=== PATIENT | male | born 1995 | race Caucasian/White ===

== ENCOUNTER 2016-12-19 09:44 | Inpatient (IN) | payer BC ==
[~2016-12-19] VITALS: Ht 167.6 cm; Wt 63.0 kg
[2016-12-19] MEDS ORDERED: SODIUM CHLORIDE 0.9% 1000ML 1,000 ML IV STA ×2 (10:06→10:58)
--- NOTE | 2016-12-19 10:29 | DIAGNOSTIC IMAGING REPORT ---
CHEST ONE VIEW PORTABLE HISTORY: Atypical chest pain. Hemoptysis. COMPARISON: None. FINDINGS: The lungs are clear. Cardiac silhouette is normal in size. No pleural effusions. No pneumothorax. IMPRESSION: No acute process. Electronically signed by: Trevin Howard M.D. 12/19/2016 10:28 AM Dictated Date/Time: 12/19/2016 10:26 AM
[2016-12-19 10:37] LABS: HEMATOCRIT 43.7 % (42-52); MEAN CORPUSCULAR HEMOGLOBIN 28.8 pg (25-34); MEAN CORPUSCULAR HGB CONC 33.9 g/dl (32-36); MEAN PLATELET VOLUME 10.1 fL (7.4-10.4); PLATELET COUNT 224 K/uL (130-400); RED BLOOD COUNT 5.14 M/uL (4.7-6.1); WHITE BLOOD COUNT 18.11 K/uL (4.8-10.8)
--- NOTE | 2016-12-19 10:50 | EMERGENCY ROOM VISIT NOTE ---
History Report prepared by Molly: Roxann Dunlap Under the Supervision of: Dr. Shahid Moseley M.D. First contact with patient: 10:01 Chief Complaint: OTHER COMPLAINT Stated Complaint: COUGHING BLOOD History of Present Illness The patient is a 21 year old male who presents to the Emergency Room with complaints of a persistent cough for the past week. He currently rates his discomfort as a 7/10 in severity. The patient states that one week ago he became ill with a cough and congestion. He states that he has had a fever, but states that it has been subsiding. The patient states that this morning he began experiencing hemoptysis. He denies ever having this in the past. The patient notes that he has been coughing often, but denies coughing forcefully. He denies any personal or family history of clotting disorders. The patient reports a family history of colon cancer. He states that he has been experiencing back pain. The patient denies any lightheadedness or dizziness. He states that he is a nonsmoker. The patient states that he was recently diagnosed with mono. He denies taking any daily medications or active medical problems. Source of History: patient Onset: past week Position: other (global) Symptom Intensity: 7/10 Quality: other (cough) Timing: other (persistent) Associated Symptoms: + fevers, + back pain Note: Associated Symptoms: congestion, hemoptysis Review of Systems See HPI for pertinent positives and negatives. A total of ten systems were reviewed and were otherwise negative. Past Medical & Surgical Medical Problems: (1) Hemoptysis (2) No Known Active Medical Problems (3) Sepsis Family History Cancer Diabetes mellitus Heart disease Kidney disease Kidney stones Social History Smoking Status: Never Smoker Smokeless Tobacco Use: No Alcohol Use: occasionally Marital Status: single Housing Status: lives with roommate Occupation Status: [employer] student Current/Historical Medications Scheduled PRN Esomeprazole Magnesium (Nexium), 1 CAP PO DAILY PRN for heartburn Allergies Coded Allergies: No Known Allergies (Unverified , 12/19/16) Physical Exam Vital Signs Date Time Temp Pulse Resp B/P (MAP) Pulse Ox O2 Delivery O2 Flow Rate FiO2 12/19/16 16:42 106 16 115/62 96 Room Air 12/19/16 14:23 134 12/19/16 14:20 143/83 12/19/16 13:31 117/64 12/19/16 13:13 100 18 111/62 98 Nebulizer 12/19/16 13:12 111/62 12/19/16 11:44 113 20 99 12/19/16 11:31 134/71 12/19/16 11:14 107 22 96 12/19/16 11:01 130/69 12/19/16 10:44 107 12 100 12/19/16 10:31 118/70 12/19/16 10:21 106 12/19/16 10:20 96 Room Air 12/19/16 10:18 111/67 12/19/16 09:48 37.6 110 18 123/72 99 Room Air Physical Exam GENERAL: Awake, alert, uncomfortable but in no distress HENT: Normocephalic, atraumatic. Dry mucous membranes. Mild injecton, mild symmetric edema in posterior pharynx. No trismus or tongue elevation. Boggy nasal turbinates. EYES: Normal conjunctiva. Sclera non-icteric. NECK: Supple. No nuchal rigidity. FROM. No JVD. Mild lateral neck swelling. No pain with tracheal manipulation. RESPIRATORY: Clear to auscultation. CARDIAC: Sinus tachycardia. Extremities warm and well perfused. Pulses equal. ABDOMEN: Soft, non-distended. No tenderness to palpation. No rebound or guarding. No masses. RECTAL: Deferred. MUSCULOSKELETAL: Chest examination reveals no tenderness. The back is symmetrical on inspection without obvious abnormality. There is no CVA tenderness to palpation. No joint edema. LOWER EXTREMITIES: Calves are equal size bilaterally and non-tender. No edema. No discoloration. NEURO: Normal sensorium. No sensory or motor deficits noted. SKIN: No rash or jaundice noted. Medical Decision & Procedures ER Provider Diagnostic Interpretation: Radiology results as stated below per my review and radiologist interpretation: CHEST ONE VIEW PORTABLE HISTORY: Atypical chest pain. Hemoptysis. COMPARISON: None. FINDINGS: The lungs are clear. Cardiac silhouette is normal in size. No pleural effusions. No pneumothorax. IMPRESSION: No acute process. Electronically signed by: Trevin Howard M.D. 12/19/2016 10:28 AM Dictated Date/Time: 12/19/2016 10:26 AM (CHEST FOR PE) ANGIO WITH CT DOSE: 357.54 mGycm HISTORY: Chest pain hemoptysis TECHNIQUE: Multiaxial CT images of the chest were performed following the intravenous administration of contrast to evaluate the pulmonary arteries. Maximal intensity projection images were also obtained. A dose lowering technique was utilized adhering to the principles of ALARA. COMPARISON STUDY: None. FINDINGS: There is a normal caliber thoracic aorta with no evidence for dissection. There is no evidence for pulmonary embolus. No pleural effusions. No pneumothorax. The liver and spleen are unremarkable. No mediastinal or hilar lymphadenopathy. The central airways are patent. The lungs are clear. Several shotty axillary nodes bilaterally with the largest of the right measuring 1.2 cm on the left 1.3 cm. IMPRESSION: 1. Study is negative for pulmonary embolus. 2. Lungs are considered clear. 3. Mild bilateral axillary adenopathy possibly reactive The above report was generated using voice recognition software. It may contain grammatical, syntax or spelling errors. Electronically signed by: Chano Dugan M.D. 12/19/2016 12:15 PM Dictated Date/Time: 12/19/2016 12:[address] NECK WITH INTRAVENOUS CONTRAST HISTORY: neck swelling/mediastinitis (half dose contrast since 2nd load) TECHNIQUE: Multiaxial CT images of the neck were performed following the use of intravenous contrast. COMPARISON STUDY: None. FINDINGS: Visualized brain parenchyma and orbits are unremarkable. Mild mucosal thickening and a trace fluid level within the right maxillary sinus. The mastoid air cells are clear. No fractures within the visualized osseous structures. Moderate enlargement and heterogeneous enhancement of the adenoid tonsils. There is also marked enlargement and heterogeneous enhancement of the of the bilateral palatine tonsils, right greater than left. No definite peritonsillar abscesses at this time. Focal hypodense/edematous region within the right palatine tonsil may represent a phlegmon. This is best seen on axial image 161. Small amount of mucoid material in the right side of the enlarged palatine tonsil. The palatine tonsils are abutting the midline resulting in mild to moderate airway compromise. The epiglottis and prevertebral soft tissues are normal in thickness. Mild upper right peritracheal lymphadenopathy. The lung apices are clear. The major vascular structures enhance normally. The parotid and submandibular glands are symmetric. There is bilateral cervical lymphadenopathy, right greater than left. Dominant right cervical lymph node measures 2.6 x 1.7 cm. Skin marker within the right lateral neck corresponds to a posterior cervical chain lymph node which measures 2.1 x 1.5 cm. The thyroid gland enhances normally. IMPRESSION: 1. Enlargement and heterogeneous enhancement within the adenoids and palatine tonsils. The palatine tonsils abut at the midline and result in mild to moderate airway compromise. Findings favor an infectious tonsillitis or mononucleosis. 2. Extensive bilateral cervical lymphadenopathy, right greater than left. 3. Focal hypodense area within the right palatine tonsil which does not clearly represent an abscess at this time. Therefore, this favors a phlegmon. Consider repeat CT scan if the patient's symptoms progress to exclude a developing peritonsillar abscess. Electronically signed by: Trevin Howard M.D. 12/19/2016 2:07 PM Dictated Date/Time: 12/19/2016 1:57 PM Laboratory Results Test 12/19/16 10:15 12/19/16 14:35 Red Blood Cell Morphology Unremarkable D-Dimer 1550 ug/L FEU (0-500) Troponin I < 0.015 ng/ml (0-0.045) Lipase 160 U/L (73-393) Monoscreen POS (NEG) Lactic Acid Level 1.5 mmol/L (0.4-2.0) Laboratory results reviewed by me Medications Administered Medications (Trade) Dose Ordered Sig/Katherine Route Start Time Stop Time Status Last Admin Dose Admin Sodium Chloride 1,000 ml @ 999 mls/hr Q1H1M STAT IV 12/19/16 10:06 12/19/16 11:06 DC 12/19/16 11:40 999 MLS/HR Sodium Chloride 1,000 ml @ 999 mls/hr Q1H1M STAT IV 12/19/16 10:58 12/19/16 11:58 DC 12/19/16 11:40 999 MLS/HR Albuterol/ Ipratropium (Duoneb) 3 ml NOW STAT INH 12/19/16 12:56 12/19/16 12:57 DC 12/19/16 13:12 3 ML Piperacillin Sod/ Tazobactam Sod (Zosyn Iv) 4.5 gm NOW STAT IV 12/19/16 13:56 12/19/16 14:01 DC 12/19/16 14:40 4.5 GM Dexamethasone Sodium Phosphate (Decadron Inj) 10 mg NOW ONCE IV 12/19/16 14:00 12/19/16 14:01 DC 12/19/16 14:41 10 MG Lactated Ringer's 1,000 ml @ 999 mls/hr Q1H1M STAT IV 12/19/16 15:22 12/19/16 16:22 DC 12/19/16 16:42 999 MLS/HR Ketorolac Tromethamine (Toradol Inj) 30 mg Q6H PRN IV 12/19/16 16:45 12/24/16 16:44 12/20/16 10:24 30 MG ECG Indication: other (hemoptysis) Rate (beats per minute): 104 Rhythm: sinus tachycardia Findings: no acute ischemic change, other (normal axis) ED Course 1006: Ordered Sodium Chloride 1000 ml @ 999 mls/hr IV. 1041: The patient was evaluated in room B12B. A complete history and physical exam was performed. 1058: Ordered Sodium Chloride 1000 ml @ 999 mls/hr IV. 1256: Ordered DuoNeb 3 ml INH. 1305: I reevaluated the patient and he is resting. I discussed the treatment plan with him. He will have an additional CT scan. 1356: Ordered Zosyn IV 4.5 gm IV. 1400: Ordered Decadron Inj 10 mg IV. 1405: I reevaluated the patient and he is resting. I did a bedside ultrasound at this time that showed not pericardial effusion and had normal LV/RV function and size. 15:30: I d/w ENT, Dr. Paz, who will evaluate patient. 15:50: I d/w Pulmonology, Dr. Andrea, who will evaluate patient. Medical Decision I reviewed the patient's past medical history, medications, and the nursing notes as described above. The patient's presentation and history were concerning for Pneumonia, bronchitis , PE, pneumonitis, alveolar hemorrhage, [place]. The patient is a 21-year-old gentleman who presents emergency Department with persisting cough and congestion for 1 week diagnosed with mono one week ago presents to the emergency department with hemoptysis 2 prior to arrival. Patient appears uncomfortable but in no acute distress. Afebrile. HR is in the 100s but otherwise vital signs stable. The patient did have one episode of hemoptysis of janiya blood on arrival here which was observed in the sink. EKG unremarkable. Workup notable for a white count of 18,000, LFTs elevated, Monospot positive. CT PE was negative for PE however when discussed with radiology there is question of some mediastinal stranding that could be consistent with mediastinitis. During observation mild increase in neck swelling appreciated and therefore CT scan of the neck was ordered which showed some adenoid enlargement with mild airway compression, question phlegmon versus early abscess. Bedside echo negative for pericardial effusion and otherwise grossly normal LV and RV size and function. Lactate wnl. Bld cx sent. Given Zosyn considering concern for bacterial infection superimposed with mono. I discussed this case with Dr. Paz, ENT, evaluated the patient at the bedside and agrees that [employer] unlikely at this time. Moreover he did perform a bedside scope which revealed a patent airway. Additionally discussed with Dr. Andrea, pulmonology, who agrees the patient will require ICU admission for airway monitoring and possible bronchoscopy if hemoptysis persists. Agrees that since the patient is stable and nontoxic, patient is appropriate for admission here. She will come to the patient at the bedside. Case d/w Dr. Walden, [facility] [place] who will admit the patient for further management. Medication Reconcilliation Current Medication List: was personally reviewed by me Impression Primary Impression: Mononucleosis Additional Impression: Mediastinitis Critical Care I have personally spent greater than 80 minutes of critical care time in the direct management of this patient. This includes bedside care, interpretation of diagnostic studies, and testing, discussion with consultants, patient, and family members, and other required patient management activities. This 80 minutes is in excess of all separately billable procedures. Scribe Attestation The scribe's documentation has been prepared under my direction and personally reviewed by me in its entirety. I confirm that the note above accurately reflects all work, treatment, procedures, and medical decision making performed by me. Departure Information Dispostion Being Evaluated By Hospitalist Prescriptions Esomeprazole Magnesium (NEXIUM) 20 Mg Cap 1 CAP PO DAILY Y for heartburn for 30 Days, CAP 0 Refills Prov: Rosemary Walden MD 12/19/16 Referrals No Doctor, Assigned (PCP) Problem Qualifiers
[2016-12-19 10:59] LABS: BLOOD UREA NITROGEN 10 mg/dl (7-18); BUN/CREATININE RATIO 9.5 (10-20); CREATININE 1.05 mg/dl (0.60-1.40); GLUCOSE 94 mg/dl (70-99); SODIUM 135 mmol/L (136-145)
[2016-12-19 11:00] LABS: ALT/SGPT 473 U/L (12-78); AST/SGOT 188 U/L (15-37); CALCIUM 8.6 mg/dl (8.5-10.1); CARBON DIOXIDE 24 mmol/L (21-32); CHLORIDE 101 mmol/L (98-107); POTASSIUM 4.2 mmol/L (3.5-5.1)
[2016-12-19 11:05] LABS: ALKALINE PHOSPHATASE 468 U/L (45-117)
[2016-12-19] MEDS ORDERED: OPTIRAY 320 IV PRN (11:15)
[2016-12-19 11:32] LABS: COMPLETE YES; LYMPH ABS # 1.12 K/uL (1.2-3.4); LYMPHOCYTE % 6.2 %; NEUTROPHILS % 23.9 %; VARIANT LYMPHOCYTE % 64.6 %
--- NOTE | 2016-12-19 12:16 | DIAGNOSTIC IMAGING REPORT ---
(CHEST FOR PE) ANGIO WITH CT DOSE: 357.54 mGycm HISTORY: Chest pain hemoptysis TECHNIQUE: Multiaxial CT images of the chest were performed following the intravenous administration of contrast to evaluate the pulmonary arteries. Maximal intensity projection images were also obtained. A dose lowering technique was utilized adhering to the principles of ALARA. COMPARISON STUDY: None. FINDINGS: There is a normal caliber thoracic aorta with no evidence for dissection. There is no evidence for pulmonary embolus. No pleural effusions. No pneumothorax. The liver and spleen are unremarkable. No mediastinal or hilar lymphadenopathy. The central airways are patent. The lungs are clear. Several shotty axillary nodes bilaterally with the largest of the right measuring 1.2 cm on the left 1.3 cm. IMPRESSION: 1. Study is negative for pulmonary embolus. 2. Lungs are considered clear. 3. Mild bilateral axillary adenopathy possibly reactive The above report was generated using voice recognition software. It may contain grammatical, syntax or spelling errors. Electronically signed by: Chaon Dugan M.D. 12/19/2016 12:15 PM Dictated Date/Time: 12/19/2016 12:08 PM
[2016-12-19] MEDS ORDERED: ALBUT/IPRATROP 3MG/0.5MG NEB 3 ML VIAL INH STA (12:56)
[2016-12-19] MEDS ORDERED: PIPERACILLIN/TAZOBACTAM 4.5 GM/100ML D5W IV STA (13:56)
[2016-12-19] MEDS ORDERED: DEXAMETHASONE SOD INJ 10 MG/ML VIAL IV ONE (14:00)
--- NOTE | 2016-12-19 14:09 | DIAGNOSTIC IMAGING REPORT ---
CT NECK WITH INTRAVENOUS CONTRAST HISTORY: neck swelling/mediastinitis (half dose contrast since 2nd load) TECHNIQUE: Multiaxial CT images of the neck were performed following the use of intravenous contrast. COMPARISON STUDY: None. FINDINGS: Visualized brain parenchyma and orbits are unremarkable. Mild mucosal thickening and a trace fluid level within the right maxillary sinus. The mastoid air cells are clear. No fractures within the visualized osseous structures. Moderate enlargement and heterogeneous enhancement of the adenoid tonsils. There is also marked enlargement and heterogeneous enhancement of the of the bilateral palatine tonsils, right greater than left. No definite peritonsillar abscesses at this time. Focal hypodense/edematous region within the right palatine tonsil may represent a phlegmon. This is best seen on axial image 161. Small amount of mucoid material in the right side of the enlarged palatine tonsil. The palatine tonsils are abutting the midline resulting in mild to moderate airway compromise. The epiglottis and prevertebral soft tissues are normal in thickness. Mild upper right peritracheal lymphadenopathy. The lung apices are clear. The major vascular structures enhance normally. The parotid and submandibular glands are symmetric. There is bilateral cervical lymphadenopathy, right greater than left. Dominant right cervical lymph node measures 2.6 x 1.7 cm. Skin marker within the right lateral neck corresponds to a posterior cervical chain lymph node which measures 2.1 x 1.5 cm. The thyroid gland enhances normally. IMPRESSION: 1. Enlargement and heterogeneous enhancement within the adenoids and palatine tonsils. The palatine tonsils abut at the midline and result in mild to moderate airway compromise. Findings favor an infectious tonsillitis or mononucleosis. 2. Extensive bilateral cervical lymphadenopathy, right greater than left. 3. Focal hypodense area within the right palatine tonsil which does not clearly represent an abscess at this time. Therefore, this favors a phlegmon. Consider repeat CT scan if the patient's symptoms progress to exclude a developing peritonsillar abscess. Electronically signed by: Trevin Howard M.D. 12/19/2016 2:07 PM Dictated Date/Time: 12/19/2016 1:57 PM
[2016-12-19] MEDS ORDERED: LACTATED RINGER'S 1000ML 1,000 ML IV STA (15:22)
--- NOTE | 2016-12-19 16:34 | ENT CONSULTATION ---
DATE OF CONSULTATION: 12/19/2016 OTOLARYNGOLOGY HEAD AND NECK SURGERY EMERGENCY ROOM CONSULTATION I have been asked by Dr. Moseley to evaluate this patient with infectious mononucleosis, acute tonsillitis, and hemoptysis. HISTORY OF PRESENT ILLNESS: The patient is a 21-year-old male who has been feeling ill for the past 10-14 days. This began with fever as high as 103 degrees Fahrenheit, fatigue, malaise, myalgias, arthralgias, and sore throat. He continued to progress with sinonasal congestion and a cough. He was seen multiple times at [facility] as well as various urgent care centers. He went to an urgent care center today after having hemoptysis. They sent him to the [facility] Emergency Room. Upon careful questioning, the patient may have coughed up as much as 1 cup of blood and blood clots. He currently denies any shortness of breath or chest pain. He states that the right side of his throat hurts more than the left. He does have some right referred otalgia. He denies any hearing loss. He has some expected odynophagia and mild dysphagia. He has also developed cervical lymphadenopathy over the past 7-10 days. ALLERGIES: No known drug allergies. HOME MEDICATIONS: None. PAST MEDICAL HISTORY: None. PAST SURGICAL HISTORY: Status post open reduction and internal fixation of a right wrist fracture. FAMILY HISTORY: Noncontributory. No bleeding disorders or malignant hyperthermia. There is a family history of early onset colon cancer. The patient has actually undergone a colonoscopy at a young age due to this family history with no findings. SOCIAL HISTORY: The patient is a [employer] senior who is originally from [place]. He is a nonsmoker. He drinks alcohol socially. He denies any illicit drug use. REVIEW OF SYSTEMS: The patient has fatigue, fever, myalgias, back pain, right greater than left sore throat, right ear pain, and the above-mentioned hemoptysis. He denies any shortness of breath or chest pain. He denies any lightheadedness or dizziness. He denies any hearing loss or vertigo. He has some sinonasal congestion, but denies any purulent rhinorrhea or postnasal drip. PHYSICAL EXAMINATION: GENERAL: This is an ill-appearing, pale young adult male who does not have any stertor or stridor. HEENT: He has severe halitosis. External auditory canals and tympanic membranes are clear bilaterally. Has a left septal deviation and right greater than left inferior turbinate hypertrophy with mild nasal mucosal congestion which is worse on the left hand side. Oral cavity and oropharyngeal examination reveals no trismus. He does have a mild exudative tonsillitis which is worse on the right compared to the left. There is no trismus. There is no uvular deviation. There is no soft palate edema. There are no clinical findings to suggest a peritonsillar abscess. NECK: Reveals bulky right greater than left anterior and posterior cervical lymphadenopathy which is most prominent in the right posterior cervical chain in the level 5 region. His trachea is midline. His thyroid shows no abnormalities visibly or on palpation. CHEST: He has no erythema overlying his chest wall cavity. There is no tenderness to palpation of his chest wall. NEUROLOGICAL: Cranial nerves II-XII are grossly intact. The patient is awake, alert and oriented x3. PROCEDURE: After administration of topical lidocaine and Afrin to the right nasal cavity, flexible laryngoscopy was performed given the history of hemoptysis as well as the worry about his airway. The nasopharynx shows mild to moderate adenoid prominence with no mucosal lesion or mass. Hypopharynx and larynx shows no edema. There are no mucosal lesions or masses. There is normal bilateral true vocal fold mobility to the midline. There is no evidence of a source of bleeding from the upper aerodigestive tract. LABORATORY DATA: Shows an elevated white blood cell count of 18.11. His lymphocytes are low at 1.12. His monocytes are high at 0.96. His D-dimer is elevated at 1550. He is mildly hyponatremic with a sodium of 135. He has mildly elevated total bilirubin of 1.4 and direct bilirubin at 0.7. He has elevated liver function tests with an AST of 188, ALT of 473, and an alkaline phosphatase of 468. [place] screen is positive. IMAGING DATA: CT scan of the neck images and report were reviewed. The patient does have mild thickening involving the right maxillary sinus, but the ostiomeatal complex is open. He has right greater than left tonsillar enlargement. There is adenoid enlargement as well. The oropharyngeal airway is mildly narrowed on the CT scan. He has a small area of edema and perhaps phlegmon within the right tonsil, but there is no ring enhancing abscess collection. The patient has bulky bilateral cervical lymphadenopathy which is worse on the right compared to the left. The largest lymph node on the right measures 2.6 cm and the largest lymph node on the right measures 2.[address] scan of the chest was also reviewed, which showed no evidence of pulmonary emboli. He has some axillary lymphadenopathy. Lungs are otherwise clear. IMPRESSION AND RECOMMENDATIONS: A 21-year-old male with infectious mononucleosis with an acute tonsillitis which is worse on the right hand side, but no evidence of peritonsillar abscess, at this time clinically or radiographically. His hypopharynx and larynx are normal. The patient does have concerning hemoptysis and I would recommend consideration of a pulmonary consultation for consideration of bronchoscopy. I have been told he will be admitted to the hospitalist service in the intensive care unit and placed on IV antibiotics and steroids. I would recommend Unasyn 3 grams IV q. 6 hours and Decadron 10 mg IV q. 8 hours while he is hospitalized. He can then go home when he is discharged on Augmentin 875 mg b.i.d. for 14 days and a prednisone taper to consist of 40 mg p.o. b.i.d. for 2 days, followed by 30 mg p.o. b.i.d. for 2 days, followed by 20 mg p.o. b.i.d. for 2 days, followed by 10 mg p.o. b.i.d. for 2 days, followed by 10 mg daily for 2 days. Since there is no ENT surgical issue on this patient, I will sign off on this consultation, but please do not hesitate to contact me if you run into any worsening right-sided throat symptomatology or airway emergency. There has been some talk that the patient may have mild mediastinitis. He needs to be monitored very closely. If he becomes more toxic or febrile, there is a chance that he may need to be transferred to a tertiary care center. For now, I think it is safe to admit him to our hospital intensive care unit with close monitoring by the ICU and medical teams. PARMINDER
[2016-12-19] MEDS ORDERED: ONDANSETRON INJ 2 MG/ML 2 ML VIAL IV PRN (16:45)
[2016-12-19] MEDS ORDERED: METHYLPREDNISOLONE IV 60 MG in SYRINGE 0 ML IV SCH (16:45)
[2016-12-19] MEDS ORDERED: POLYETHYLENE (MIRALAX) 17 GM PACK PO PRN (16:45)
[2016-12-19] MEDS ORDERED: ACETAMINOPHEN 325 MG TAB PO PRN (16:45)
[2016-12-19] MEDS ORDERED: ESOM20CA PO (17:50)
--- NOTE | 2016-12-19 18:24 | History and Physical ---
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 He began having fevers to 103, malaise, sore throat, and severe fatigue about 7-10 days ago. [facility] Eventually, he was positive for mono testing, but states he was negative for strep pharyngitis. He reports coughing up about a cupful of bright red blood this morning and was sent to the ER from the clinic. In the ER, his Monospot was again positive, his LFTs were elevated, his white blood cell count was elevated at 18 with a predominance of atypical lymphocytes. He had a CT angiogram of the chest which was negative for PE or pneumonia, but did show some mild axillary adenopathy bilaterally. He had some neck swelling and the ER doctor ordered a CT scan of the neck which showed enlargement of the adenoid and palatine tonsils, mild to moderate airway compromise, and phlegmon in the right tonsil with suspicion for early peritonsillar abscess. Although not in the report, the ER doctor mentioned that radiology thought there might be some stranding in the mediastinum consistent with mediastinitis. He had a low-grade fever in the ER, was tachycardic, and with a leukocytosis. A lactate was normal at 1.5 but was not drawn until after he received IV fluids. ENT saw the patient and performed a nasal laryngoscopy in the emergency room and did not think he had any airway compromise and there was no active bleeding. ER doctor performed a bedside echocardiogram which showed no pericardial effusion and grossly normal function. The patient will be admitted for hemoptysis, infectious mononucleosis with pharyngitis, and sepsis. Past Medical/Surgical History PMH: GERD with hiatal hernia PSH: Right wrist ORIF Family History Cancer Diabetes mellitus Heart disease Kidney disease Kidney stones Early colon cancer Sister required tonsillectomy for frequent pharyngitis Social History Smoking Status: Never Smoker Smokeless Tobacco Use: No Alcohol Use: socially Drug Use: none Marital Status: single Housing status: lives with roommate Occupational Status: [employer] student Allergies Coded Allergies: No Known Allergies (Unverified , 12/19/16) Home Medications Scheduled PRN Esomeprazole Magnesium (Nexium), 1 CAP PO DAILY PRN for heartburn Review of Systems Constitutional: + fever, + chills, + fatigue ENT: + nasal symptoms (some nasal congestion), + sore throat Respiratory: + hemoptysis, No cough, No shortness of breath Cardiovascular: No chest pain Abdomen: + pain (some in the left upper quadrant but not currently), No nausea , No vomiting Musculoskeletal: No problem reported Genitourinary - Male: No problem reported Neurologic: No problem reported Psychiatric: No problem reported Endocrine: + fatigue Hematologic / Lymphatic: + swollen lymph nodes (in the neck) Integumentary: No rash Allergic / Immunologic: No problem reported Physical Exam Vital Signs Date Time Temp Pulse Resp B/P (MAP) Pulse Ox O2 Delivery O2 Flow Rate FiO2 12/19/16 16:42 106 16 115/62 96 Room Air 12/19/16 14:23 134 12/19/16 14:20 143/83 12/19/16 13:31 117/64 12/19/16 13:13 100 18 111/62 98 Nebulizer 12/19/16 13:12 111/62 12/19/16 11:44 113 20 99 12/19/16 11:31 134/71 12/19/16 11:14 107 22 96 12/19/16 11:01 130/69 12/19/16 10:44 107 12 100 12/19/16 10:31 118/70 12/19/16 10:21 106 12/19/16 10:20 96 Room Air 12/19/16 10:18 111/67 12/19/16 09:48 37.6 110 18 123/72 99 Room Air General Appearance: WD/WN, no apparent distress Head: normocephalic, atraumatic Eyes: normal inspection, EOMI, sclerae normal ENT: hearing grossly normal, + pertinent finding (severe halitosis, right tonsil with erythema and mild exudate, airway is widely patent) Neck: supple, + adenopathy present (bilateral right greater than left bulky cervical posterior and anterior lymphadenopathy that is tender to the touch) Respiratory/Chest: lungs clear, normal breath sounds, no respiratory distress, no accessory muscle use Cardiovascular: no edema, no gallop, no murmur, normal peripheral pulses, + tachycardia (with regular rhythm) Abdomen/GI: normal bowel sounds, soft, + tenderness (mild in the left upper quadrant, no definite spleen edge palpable, no guarding or rebound tenderness) Back: normal inspection Extremities/Musculoskelatal: normal inspection, no calf tenderness, normal capillary refill, no pedal edema, normal range of motion Neurologic/Psych: no motor/sensory deficits, alert, normal mood/affect, oriented x 3 Skin: normal color, warm/dry, no rash Lymphatic: + cervical node abnormality (as per above) Diagnostics Laboratory Results Results Past 24 Hours Test 12/19/16 10:15 12/19/16 14:35 Range/Units White Blood Count 18.11 4.8-10.8 K/uL Red Blood Count 5.14 4.7-6.1 M/uL Hemoglobin 14.8 14.0-18.0 g/dL Hematocrit 43.7 42-52 % Mean Corpuscular Volume 85.0 80-100 fL Mean Corpuscular Hemoglobin 28.8 25-34 pg Mean Corpuscular Hemoglobin Concent 33.9 32-36 g/dl Platelet Count 224 130-400 K/uL Mean Platelet Volume 10.1 7.4-10.4 fL RDW Standard Deviation 41.5 36.4-46.3 fL RDW Coefficient of Variation 13.4 11.5-14.5 % Neutrophils % (Manual) 23.9 % Lymphocytes % (Manual) 6.2 % Variant Lymphocytes % (manual) 64.6 % Monocytes % (Manual) 5.3 % Neutrophils # (Manual) 4.33 1.4-6.5 K/uL Total Absolute Neutrophils 4.33 1.4-6.5 K/uL Lymphocytes # (Manual) 1.12 1.2-3.4 K/uL Absolute Variant Lymphocytes 11.70 K/uL Total Absolute Lymphocytes 12.82 1.2-3.4 K/uL Monocytes # (Manual) 0.96 0.11-0.59 K/uL Red Blood Cell Morphology Unremarkable D-Dimer 1550 0-500 ug/L FEU Sodium Level 135 136-145 mmol/L Potassium Level 4.2 3.5-5.1 mmol/L Chloride Level 101 98-107 mmol/L Carbon Dioxide Level 24 21-32 mmol/L Anion Gap 10.0 3-11 mmol/L Blood Urea Nitrogen 10 7-18 mg/dl Creatinine 1.05 0.60-1.40 mg/dl Est Creatinine Clear Calc Drug Dose 99.5 ml/min Estimated GFR () 116.2 Estimated GFR (Non- 100.3 BUN/Creatinine Ratio 9.5 10-20 Random Glucose 94 70-99 mg/dl Calcium Level 8.6 8.5-10.1 mg/dl Total Bilirubin 1.4 0.2-1 mg/dl Direct Bilirubin 0.7 0-0.2 mg/dl Aspartate Amino Transf (AST/SGOT) 188 15-37 U/L Alanine Aminotransferase (ALT/SGPT) 473 12-78 U/L Alkaline Phosphatase 468 45-117 U/L Troponin I < 0.015 0-0.045 ng/ml Total Protein 7.9 6.4-8.2 gm/dl Albumin 3.6 3.4-5.0 gm/dl Lipase 160 73-393 U/L Monoscreen POS NEG Lactic Acid Level 1.5 0.4-2.0 mmol/L Microbiology Results 12/19/16 Blood Culture, Received Pending 12/19/16 Blood Culture, Received Pending 12/19/16 Group A Streptococcus Screen, Received Pending 12/19/16 Group A Streptococcus Screen (CRYSTAL), Received Pending Diagnostic Radiology CT angiogram of the chest images personally reviewed by me and agree with the radiology findings: 1. Study is negative for pulmonary embolus. 2. Lungs are considered clear. 3. Mild bilateral axillary adenopathy possibly reactive CT soft tissue neck reviewed by me and agree with radiology findings: 1. Enlargement and heterogeneous enhancement within the adenoids and palatine tonsils. The palatine tonsils abut at the midline and result in mild to moderate airway compromise. Findings favor an infectious tonsillitis or mononucleosis. 2. Extensive bilateral cervical lymphadenopathy, right greater than left. 3. Focal hypodense area within the right palatine tonsil which does not clearly represent an abscess at this time. Therefore, this favors a phlegmon. Consider repeat CT scan if the patient's symptoms progress to exclude a developing peritonsillar abscess. 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 Infectious mononucleosis, pharyngitis, sepsis, hemoptysis-lab findings of leukocytosis with predominance of atypical lymphocytes and physical exam CONSISTENT with mononucleosis. Bleeding is most likely coming from the upper airway. ENT saw the patient and performed a nasal laryngoscopy in the emergency room and did not think he had any airway compromise and there was no active bleeding. Pulmonology also evaluated the patient in the ER and reviewed the CT scan of the chest. No need for urgent bronchoscopy at this time. -Continue dexamethasone 10 mg IV every 8 hours and then can send out on prednisone taper as per ENT specifications as per their consultation -Continue Zosyn for now and can switch to Augmentin also as per ENT recommendations-to cover for bacterial pharyngitis superimposed on mononucleosis -Check rapid strep and throat culture if rapid strep is negative -Toradol, acetaminophen for pain control -Continue observation for persistent hemoptysis-pulmonology would consider bronchoscopy if persists -full liquid diet until pain improved -Follow CBC and LFTs in the morning Elevated LFTs-likely secondary to mononucleosis -Follow LFTs to ensure trending down Cervical and axillary lymphadenopathy-secondary to infectious mononucleosis -Follow clinically Left upper quadrant pain-stain appears normal on CT of the chest, but is likely related to his mononucleosis -Observe for signs of splenic rupture -Recommend 3-4 weeks with no contact sports or activities GERD-no current issues although will be on steroids which could exacerbate this -Start daily PPI while on steroids Prophylaxis-SCDs, no chemical prophylaxis secondary to hemoptysis Disposition-to home in 1-2 days Full code Level of Care Telemetry Resuscitation Status FULL RESUSCITATION VTE Prophylaxis Given or contraindicated: SCD's Additional Copies To [facility]
[2016-12-19 19:30] VITALS: BP 124/69; PULSE 95; TEMP 37.4; O2SAT 96; Ht 167.6 cm; Wt 63.0 kg
[2016-12-19] MEDS: KETOROLAC TROMETHAMINE 30 MG/ML VIAL IV PRN (20:05)
[2016-12-19] MEDS ORDERED: PIPERACILL/TAZOBAC CONSULT ACTIVE PRN (20:30)
[2016-12-19] MEDS: DEXAMETHASONE INJ 10 MG in SYRINGE 0 ML IV SCH (20:57)
[2016-12-19] MEDS: PIPERACILL/TAZOBAC IV 3.375 GM in DEXTROSE 5% 100ML 100 ML IV SCH (20:57)
[2016-12-19 23:03] VITALS: BP 118/69; PULSE 91; TEMP 36.6; O2SAT 99
[2016-12-20] VITALS (9 sets, daily range): BP systolic 106–126; BP diastolic 61–84; PULSE 70–84; TEMP 36.6–36.9; O2SAT 95–99
[2016-12-20] MEDS: KETOROLAC TROMETHAMINE 30 MG/ML VIAL IV PRN ×3 (03:38→17:54)
[2016-12-20] MEDS: PIPERACILL/TAZOBAC IV 3.375 GM in DEXTROSE 5% 100ML 100 ML IV SCH ×3 (06:06→20:30)
[2016-12-20 06:15] LABS: HEMATOCRIT 39.8 % (42-52); MEAN CELL VOLUME 84.3 fL (80-100); MEAN CORPUSCULAR HEMOGLOBIN 28.6 pg (25-34); MEAN CORPUSCULAR HGB CONC 33.9 g/dl (32-36); MEAN PLATELET VOLUME 10.2 fL (7.4-10.4); PLATELET COUNT 253 K/uL (130-400); RED BLOOD COUNT 4.72 M/uL (4.7-6.1); WHITE BLOOD COUNT 12.16 K/uL (4.8-10.8)
[2016-12-20] MEDS: DEXAMETHASONE INJ 10 MG in SYRINGE 0 ML IV SCH (06:30)
[2016-12-20 06:43] LABS: ALT/SGPT 319 U/L (12-78); AST/SGOT 83 U/L (15-37); BLOOD UREA NITROGEN 10 mg/dl (7-18); BUN/CREATININE RATIO 14.3 (10-20); CALCIUM 8.1 mg/dl (8.5-10.1); CARBON DIOXIDE 26 mmol/L (21-32); CHLORIDE 103 mmol/L (98-107); CREATININE 0.73 mg/dl (0.60-1.40); GLUCOSE 164 mg/dl (70-99); POTASSIUM 4.1 mmol/L (3.5-5.1); SODIUM 136 mmol/L (136-145)
[2016-12-20 06:50] LABS: ALKALINE PHOSPHATASE 357 U/L (45-117)
[2016-12-20 07:45] LABS: COMPLETE YES; LYMPH ABS # 0.64 K/uL (1.2-3.4); LYMPHOCYTE % 5.3 %; NEUTROPHILS % 40.7 %; VARIANT LYM ABS # 6.14 K/uL; VARIANT LYMPHOCYTE % 50.5 %
[2016-12-20] MEDS: PANTOprazole SOD 40 MG TAB PO SCH (09:00)
--- NOTE | 2016-12-20 10:29 | Pulmonary Consultation ---
History General Date of Service: Dec 20, 2016. Stated Complaint: Hemoptysis, Sepsis HPI Patient is a 21 yo male who presented to the ED with concerns of persistent cough with hemoptysis, congestion, sore throat, malaise, and fever. Prior to presentation to the ED, [facility] and [facility]gent care more recently. He has also had severe fatigue for about 1 week. Upon presentation to the ED, the patient was noted to have elevated WBC count of 18.11 with Lymphocyte predominance, elevated LFTs, elevated DDimer, and positive [place] screen again. CTA of the chest was completed on presentation which was viewed by me and showed no PE, overall clear lung cates, and mild bilateral axillary adenopathy. CT of the neck was also completed which showed enlargement of the adenoids and palatine tonsils, extensive bilateral cervical lymphadenopathy, and focal hypodense area in the right palatine tonsil favoring phlegmon. ENT evaluated the patient and did not feel that he has evidence of peritonsillar abscess. The patient was placed on IV Zosyn and Dexamethasone 10 mg Q8h. He is also no Toradol for pain control. Initial throat swab for strep is negative. Throat culture and blood cultures are pending. Patient was evaluated by Dr. Andrea as well in the ED upon initially presentation. Historian: patient, family Onset: last week Severity: severe Complaint Status: improved Review of Systems Constitutional: reports: chills, fever (now resolved), malaise Eyes: denies: eye pain, redness ENT: denies: loss of hearing Cardiovascular: denies: chest pain, chest pressure, chest tightness Respiratory: reports: cough, hemoptysis Gastrointestinal: reports: abdominal pain, denies: constipation, diarrhea Genitourinary - Male: denies: dysuria, hematuria Integumentary: denies: rash Neurologic: denies: headache All Other Symptoms All Other Systems: Reviewed and Negative Past Medical History Past Medical History: Medical Problems: (1) Hemoptysis (2) No Known Active Medical Problems (3) Sepsis Past Surgical Hx: Right wrist ORIF Family History Cancer Diabetes mellitus Heart disease Kidney disease Kidney stones Social History Hx Tobacco Use In Past Year?: No Smoking Status: Never Smoker Marital status: single Housing status: lives with roommate Occupational Status: [employer] student Allergies Coded Allergies: No Known Allergies (Unverified , 12/19/16) Current Medications Reported Home Medications Medications Dose Route/Sig Max Daily Dose Days Date Category Nexium (Esomeprazole Magnesium) 20 Mg Cap 1 Cap PO DAILY PRN 30 12/19/16 Rx Physical Physical Exam Vital Signs: Date Time Temp Pulse Resp B/P (MAP) Pulse Ox O2 Delivery O2 Flow Rate FiO2 12/20/16 08:01 36.7 84 18 126/71 (89) 98 Room Air 12/20/16 04:00 Room Air 12/20/16 03:46 36.7 70 20 126/84 (98) 99 Room Air 12/19/16 23:59 Room Air 12/19/16 23:03 36.6 91 15 118/69 (85) 99 Room Air 12/19/16 20:00 Room Air 12/19/16 19:30 37.4 95 18 124/69 96 Room Air 12/19/16 19:08 37.6 88 18 122/55 96 12/19/16 19:03 88 18 122/55 96 Room Air 12/19/16 16:42 106 16 115/62 96 Room Air 12/19/16 14:23 134 12/19/16 14:20 143/83 12/19/16 13:31 117/64 12/19/16 13:13 100 18 111/62 98 Nebulizer 12/19/16 13:12 111/62 12/19/16 11:44 113 20 99 12/19/16 11:31 134/71 12/19/16 11:14 107 22 96 12/19/16 11:01 130/69 12/19/16 10:44 107 12 100 12/19/16 10:31 118/70 General Appearance: WELL-APPEARING, WD/WN, NO APPARENT DISTRESS Head: NORMOCEPHALIC, ATRAUMATIC Eyes: PERRLA, NO DISCHARGE, SCLERAE NORMAL Neck: NORMAL RANGE OF MOTION, TRACHEA MIDLINE, NO STRIDOR, other (Very mild tenderness to palpation today- improved, Continues mild adenopathy of the cervical chains and also of the submandibular lymph nodes) Respiratory: BREATH SOUNDS NORMAL, CLEAR TO AUSCULTATION, NO RESPIRATORY DISTRESS, NO TENDERNESS Cardiovasular: REGULAR RATE/RHYTHM, NORMAL S1S2, NO MURMUR Abdomen: NON TENDER, NORMAL BOWEL SOUNDS, NO MASSES Back: NORMAL INSPECTION Upper Extremities: NO EDEMA, NORMAL ROM Lower Extremities: NO EDEMA, NORMAL ROM Neuro: ALERT, ORIENTED x 3 Psychiatric: NORMAL AFFECT Diagnostics Labs Results Past 24 Hours Test 12/19/16 14:35 12/20/16 05:51 Range/Units Lactic Acid Level 1.5 0.4-2.0 mmol/L White Blood Count 12.16 4.8-10.8 K/uL Red Blood Count 4.72 4.7-6.1 M/uL Hemoglobin 13.5 14.0-18.0 g/dL Hematocrit 39.8 42-52 % Mean Corpuscular Volume 84.3 80-100 fL Mean Corpuscular Hemoglobin 28.6 25-34 pg Mean Corpuscular Hemoglobin Concent 33.9 32-36 g/dl Platelet Count 253 130-400 K/uL Mean Platelet Volume 10.2 7.4-10.4 fL RDW Standard Deviation 41.0 36.4-46.3 fL RDW Coefficient of Variation 13.3 11.5-14.5 % Nucleated RBC Absolute Count (auto) 0.07 0-0 K/uL Neutrophils % (Manual) 40.7 % Lymphocytes % (Manual) 5.3 % Variant Lymphocytes % (manual) 50.5 % Monocytes % (Manual) 3.5 % Nucleated Red Blood Cells % 0.6 % Neutrophils # (Manual) 4.95 1.4-6.5 K/uL Total Absolute Neutrophils 4.95 1.4-6.5 K/uL Lymphocytes # (Manual) 0.64 1.2-3.4 K/uL Absolute Variant Lymphocytes 6.14 K/uL Total Absolute Lymphocytes 6.79 1.2-3.4 K/uL Monocytes # (Manual) 0.43 0.11-0.59 K/uL Sodium Level 136 136-145 mmol/L Potassium Level 4.1 3.5-5.1 mmol/L Chloride Level 103 98-107 mmol/L Carbon Dioxide Level 26 21-32 mmol/L Anion Gap 7.0 3-11 mmol/L Blood Urea Nitrogen 10 7-18 mg/dl Creatinine 0.73 0.60-1.40 mg/dl Est Creatinine Clear Calc Drug Dose 143.2 ml/min Estimated GFR () > 150.0 Estimated GFR (Non- 131.7 BUN/Creatinine Ratio 14.3 10-20 Random Glucose 164 70-99 mg/dl Calcium Level 8.1 8.5-10.1 mg/dl Total Bilirubin 0.9 0.2-1 mg/dl Direct Bilirubin 0.4 0-0.2 mg/dl Aspartate Amino Transf (AST/SGOT) 83 15-37 U/L Alanine Aminotransferase (ALT/SGPT) 319 12-78 U/L Alkaline Phosphatase 357 45-117 U/L Total Protein 7.0 6.4-8.2 gm/dl Albumin 3.0 3.4-5.0 gm/dl Microbiology Results 12/19/16 Blood Culture, Received Pending 12/19/16 Blood Culture, Received Pending 12/19/16 Group A Streptococcus Screen - Final, Resulted SPECIMEN NEGATIVE FOR GROUP A BETA ST... 12/19/16 Group A Streptococcus Screen (CRYSTAL), Resulted Pending Diagnostic Radiology (CHEST FOR PE) ANGIO WITH CT DOSE: 357.54 mGycm HISTORY: Chest pain hemoptysis TECHNIQUE: Multiaxial CT images of the chest were performed following the intravenous administration of contrast to evaluate the pulmonary arteries. Maximal intensity projection images were also obtained. A dose lowering technique was utilized adhering to the principles of ALARA. COMPARISON STUDY: None. FINDINGS: There is a normal caliber thoracic aorta with no evidence for dissection. There is no evidence for pulmonary embolus. No pleural effusions. No pneumothorax. The liver and spleen are unremarkable. No mediastinal or hilar lymphadenopathy. The central airways are patent. The lungs are clear. Several shotty axillary nodes bilaterally with the largest of the right measuring 1.2 cm on the left 1.3 cm. IMPRESSION: 1. Study is negative for pulmonary embolus. 2. Lungs are considered clear. 3. Mild bilateral axillary adenopathy possibly reactive CT NECK WITH INTRAVENOUS CONTRAST HISTORY: neck swelling/mediastinitis (half dose contrast since 2nd load) TECHNIQUE: Multiaxial CT images of the neck were performed following the use of intravenous contrast. COMPARISON STUDY: None. FINDINGS: Visualized brain parenchyma and orbits are unremarkable. Mild mucosal thickening and a trace fluid level within the right maxillary sinus. The mastoid air cells are clear. No fractures within the visualized osseous structures. Moderate enlargement and heterogeneous enhancement of the adenoid tonsils. There is also marked enlargement and heterogeneous enhancement of the of the bilateral palatine tonsils, right greater than left. No definite peritonsillar abscesses at this time. Focal hypodense/edematous region within the right palatine tonsil may represent a phlegmon. This is best seen on axial image 161. Small amount of mucoid material in the right side of the enlarged palatine tonsil. The palatine tonsils are abutting the midline resulting in mild to moderate airway compromise. The epiglottis and prevertebral soft tissues are normal in thickness. Mild upper right peritracheal lymphadenopathy. The lung apices are clear. The major vascular structures enhance normally. The parotid and submandibular glands are symmetric. There is bilateral cervical lymphadenopathy, right greater than left. Dominant right cervical lymph node measures 2.6 x 1.7 cm. Skin marker within the right lateral neck corresponds to a posterior cervical chain lymph node which measures 2.1 x 1.5 cm. The thyroid gland enhances normally. IMPRESSION: 1. Enlargement and heterogeneous enhancement within the adenoids and palatine tonsils. The palatine tonsils abut at the midline and result in mild to moderate airway compromise. Findings favor an infectious tonsillitis or mononucleosis. 2. Extensive bilateral cervical lymphadenopathy, right greater than left. 3. Focal hypodense area within the right palatine tonsil which does not clearly represent an abscess at this time. Therefore, this favors a phlegmon. Consider repeat CT scan if the patient's symptoms progress to exclude a developing peritonsillar abscess. EKG EKG: NSR- viewed Impression Assessment and Plan Infectious mononucleosis Pharyngitis Hemoptysis- resolved Acute hepatitis- continues elevation of LFTs, but improved Patient with infectious mononucleosis and tonsilitis who was having hemoptysis upon initial presentation. Hemoptysis and cough have resolved this AM. Do not feel that bronchoscopic evaluation is necessary at this time. If hemoptysis returns, will proceed with bronchoscopy. Due to severe tonsillitis, note that ENT recommend continued antibiotic therapy x 14 days with Augmentin after discontinuation of IV therapy. Agree with this plan. Continue steroid taper. Likely can transition to PO. Patient does not need continued pulmonary follow up at this time unless hemoptysis returns. We will sign off. Please call with changes.
[2016-12-20] MEDS ORDERED: NURSING VERBAL MED ORDER ONE (11:45)
--- NOTE | 2016-12-20 11:53 | Family Medicine Progress Note ---
Progress Note Date of Service Dec 20, 2016. Subjective Pt evaluation today including: conversation w/ patient, conversation w/ family , physical exam, chart review, lab review, review of studies, review of inpatient medication list Pain: minimal throat pain PO Intake: adequate Voiding: no voiding problems No acute events overnight, Patient feels much improved. Hemoptysis has resolved , He reports residual soar throat improved from previous. He also reports sweating. He denies CP, SOB, Abdominal pain, N/V, change in stool. Fever resolved, Constitutional: + fever (resolved), + sweats, + fatigue, No chills ENT: + sore throat Respiratory: No cough, No sputum, No shortness of breath Cardiovascular: No chest pain, No palpitations Abdomen: No pain, No nausea, No vomiting, No diarrhea Male : No dysuria, No urinary frequency, No hematuria Neurologic: No weakness, No numbness/tingling Skin: No rash, No itch, No new/changing skin lesions Medications Current Inpatient Medications Medications (Trade) Dose Ordered Sig/Katherine Route Start Time Stop Time Status Last Admin Dose Admin Ioversol (Optiray 320) 100 ml UD PRN IV 12/19/16 11:15 12/23/16 11:14 Acetaminophen (Tylenol Tab) 650 mg Q4H PRN PO 12/19/16 16:45 01/18/17 16:44 Polyethylene (Miralax Powder Packet) 17 gm DAILY PRN PO 12/19/16 16:45 01/18/17 16:44 Ondansetron HCl (Zofran Inj) 4 mg Q6H PRN IV 12/19/16 16:45 01/18/17 16:44 Ketorolac Tromethamine (Toradol Inj) 30 mg Q6H PRN IV 12/19/16 16:45 12/24/16 16:44 12/20/16 17:54 30 MG Piperacillin Sod/ Tazobactam Sod 3.375 gm/Dextrose 115 ml @ 28.75 mls/ hr Q8H IV 12/19/16 20:00 12/29/16 19:59 12/20/16 12:55 28.75 MLS/HR Pantoprazole Sodium (Protonix Tab) 40 mg QAM PO 12/20/16 09:00 01/19/17 08:59 Piperacillin Sod/ Tazobactam Sod (Consult) 1 ea UD PRN N/A 12/19/16 20:30 01/18/17 20:29 Prednisone (PredniSONE TAB) 20 mg BIDM PO 12/20/16 16:45 01/19/17 16:44 12/20/16 17:54 20 MG Objective Vital Signs Date Time Temp Pulse Resp B/P (MAP) Pulse Ox O2 Delivery O2 Flow Rate FiO2 12/20/16 16:00 95 Room Air 12/20/16 15:48 36.7 73 16 106/61 (76) 98 Room Air 12/20/16 12:00 97 Room Air 12/20/16 11:38 36.6 76 18 116/64 (81) 97 Room Air 12/20/16 08:01 36.7 84 18 126/71 (89) 98 Room Air 12/20/16 08:00 99 Room Air 12/20/16 04:00 Room Air 12/20/16 03:46 36.7 70 20 126/84 (98) 99 Room Air 12/19/16 23:59 Room Air 12/19/16 23:03 36.6 91 15 118/69 (85) 99 Room Air 12/19/16 20:00 Room Air 12/19/16 19:30 37.4 95 18 124/69 96 Room Air 12/19/16 19:08 37.6 88 18 122/55 96 12/19/16 19:03 88 18 122/55 96 Room Air Physical Exam Notes: GENERAL: alert, no distress EYE EXAM: normal conjunctiva, PERRL and EOM's grossly intact OROPHARYNX: erythema, Bilateral tonsillar enlargement , +exudates, lips, buccal mucosa, and tongue normal and mucous membranes are moist NECK: supple, no nuchal rigidity, no adenopathy, non-tender LUNGS: Clear to auscultation. Normal chest wall mechanics HEART: no murmurs, S1 normal and S2 normal ABDOMEN: abdomen soft, non-tender, normo-active bowel sounds, no masses, no rebound or guarding. SKIN: no rashes and no bruising UPPER EXTREMITIES: upper extremities are grossly normal. LOWER EXTREMITIES: No pitting edema. NEURO EXAM: Normal sensorium, cranial nerves II-XII [grossly] intact, normal speech Laboratory Results Results Past 24 Hours Test 12/20/16 05:51 Range/Units White Blood Count 12.16 4.8-10.8 K/uL Red Blood Count 4.72 4.7-6.1 M/uL Hemoglobin 13.5 14.0-18.0 g/dL Hematocrit 39.8 42-52 % Mean Corpuscular Volume 84.3 80-100 fL Mean Corpuscular Hemoglobin 28.6 25-34 pg Mean Corpuscular Hemoglobin Concent 33.9 32-36 g/dl Platelet Count 253 130-400 K/uL Mean Platelet Volume 10.2 7.4-10.4 fL RDW Standard Deviation 41.0 36.4-46.3 fL RDW Coefficient of Variation 13.3 11.5-14.5 % Nucleated RBC Absolute Count (auto) 0.07 0-0 K/uL Neutrophils % (Manual) 40.7 % Lymphocytes % (Manual) 5.3 % Variant Lymphocytes % (manual) 50.5 % Monocytes % (Manual) 3.5 % Nucleated Red Blood Cells % 0.6 % Neutrophils # (Manual) 4.95 1.4-6.5 K/uL Total Absolute Neutrophils 4.95 1.4-6.5 K/uL Lymphocytes # (Manual) 0.64 1.2-3.4 K/uL Absolute Variant Lymphocytes 6.14 K/uL Total Absolute Lymphocytes 6.79 1.2-3.4 K/uL Monocytes # (Manual) 0.43 0.11-0.59 K/uL Sodium Level 136 136-145 mmol/L Potassium Level 4.1 3.5-5.1 mmol/L Chloride Level 103 98-107 mmol/L Carbon Dioxide Level 26 21-32 mmol/L Anion Gap 7.0 3-11 mmol/L Blood Urea Nitrogen 10 7-18 mg/dl Creatinine 0.73 0.60-1.40 mg/dl Est Creatinine Clear Calc Drug Dose 143.2 ml/min Estimated GFR () > 150.0 Estimated GFR (Non- 131.7 BUN/Creatinine Ratio 14.3 10-20 Random Glucose 164 70-99 mg/dl Calcium Level 8.1 8.5-10.1 mg/dl Total Bilirubin 0.9 0.2-1 mg/dl Direct Bilirubin 0.4 0-0.2 mg/dl Aspartate Amino Transf (AST/SGOT) 83 15-37 U/L Alanine Aminotransferase (ALT/SGPT) 319 12-78 U/L Alkaline Phosphatase 357 45-117 U/L Total Protein 7.0 6.4-8.2 gm/dl Albumin 3.0 3.4-5.0 gm/dl Assessment and Plan 21 yo M Hx GERD p/w pharyngitis, hemoptysis found to have fever , tonsillar erythema with exudates leukocytosis with atypical lymphocytes, Rapid strep neg. Monospot Positive admitted with sepsis Sepsis in the setting Infectious mononucleosis, pharyngitis, Lymphadenopathy -clinically improved, vitals stabilized. -Monospot positive, Rapid strep/Throat culture negative -Got Dexamethasone 10 mg IV q8 on admission -D/c'd Dexamethasone , converted to PO Prednisone 20 mg BID -Pain control for pharyngitis: PRN Toradol -Continue IV abx (Zosyn) -consider switch to PO Augmentin pending cx's Hemoptysis - resolved - seen by Pulmonology - no bronchoscopy planned due to resolution of hemoptysis Elevated LFTS's -trending down -likely secondary to Mononucleosis LUQ pain -resolved --likely secondary to Mononucleosis Hx GERD - controlled -Continue to Protonix DVT Prophylaxis -SCD's Continued [facility] stay due to: multiple IV medications needed Discharge planning: home Resident Tracking Resident Involvement: Resident Care Provided Care Provided: Adult Hospital Medicine
[2016-12-21 00:16] VITALS: BP 106/59; PULSE 63; TEMP 37; O2SAT 97
[2016-12-21] MEDS: KETOROLAC TROMETHAMINE 30 MG/ML VIAL IV PRN ×2 (00:50→07:41)
[2016-12-21 03:59] VITALS: BP 121/72; PULSE 63; TEMP 37; O2SAT 98
[2016-12-21] MEDS: PIPERACILL/TAZOBAC IV 3.375 GM in DEXTROSE 5% 100ML 100 ML IV SCH (04:00)
[2016-12-21] MEDS: PANTOprazole SOD 40 MG TAB PO SCH (07:37)
[2016-12-21 07:56] LABS: HEMATOCRIT 41.7 % (42-52); MEAN CELL VOLUME 85.3 fL (80-100); MEAN CORPUSCULAR HEMOGLOBIN 28.4 pg (25-34); MEAN CORPUSCULAR HGB CONC 33.3 g/dl (32-36); MEAN PLATELET VOLUME 9.8 fL (7.4-10.4); PLATELET COUNT 312 K/uL (130-400); RED BLOOD COUNT 4.89 M/uL (4.7-6.1)
[2016-12-21 08:22] LABS: BUN/CREATININE RATIO 14.1 (10-20); CALCIUM 8.4 mg/dl (8.5-10.1); CREATININE 0.96 mg/dl (0.60-1.40)
[2016-12-21 08:24] VITALS: BP 121/62; PULSE 119; TEMP 36.7; O2SAT 99
[2016-12-21 08:51] LABS: COMPLETE YES; LYMPHOCYTE % 9.6 %; NEUTROPHILS % 52.2 %; VARIANT LYM ABS # 5.15 K/uL
[2016-12-21] MEDS ORDERED: AMOXICILLIN/CLAVULANATE TAB 875 MG TAB PO ONE (11:15)
[2016-12-21] MEDS ORDERED: AMOX875T PO ×2 (11:59→12:42)
[2016-12-21] MEDS ORDERED: PRD20 PO (11:59)
[2016-12-21] MEDS ORDERED: PRED10TA PO (12:35)
--- NOTE | 2016-12-21 12:41 | Discharge Instructions ---
Discharge Instructions Date of Service Dec 21, 2016. Admission Reason for Admission: Hemoptysis, Sepsis Discharge Discharge Diagnosis / Problem: Tonsillitis , Mononucleosis, Streptococcal Pharyngitis Discharge Goals Goal(s): Decrease discomfort, Improve function, Increase independence, Improve disease control, Improve nutritional status, Learn about illness, Diagnostic testing, Therapeutic intervention, Screening, Prevent Disease Progression, Specific goals Activity Recommendations Activity Limitations: per Instructions/Follow-up section Exercise/Sports Limitations: none (duration: 3-4 wks) Instructions / Follow-Up Instructions / Follow-Up You arrived with fever and soar throat , sepsis and were found to have labs consistent with Mononucleosis and Strep Pharyngitis -Please take medication as prescribed -Please follow up with Dr. Serjio Carson ( [facility], [address] You should receve a call to make an appt for 1-2 wks) -If you don't receive call , please call [phone] -You will need repeat Liver enzymes in 1 week priot to appt -Please refrain from contact sport or high impact activites for 3-4 weeks Call 911 for any of the following: You have shortness of breath. You are confused or have a seizure. Return to the emergency department if: You have severe pain in your abdomen or shoulder. You have trouble swallowing because of the pain. You urinate very little or not at all. Your arms or legs are weak. You have new symptoms like a bad headache, stiff neck, chest pain, or vomiting. You are drooling because you cannot swallow your spit. Contact your healthcare provider if: Your symptoms get worse, even after treatment. You have a fever. You have a rash or ear pain. You have green, yellow-brown, or bloody mucus when you cough or blow your nose. You are unable to drink anything. You have questions or concerns about your condition or care. . Current Hospital Diet Patient's current hospital diet: Regular Diet Discharge Diet Recommended Diet: Regular Diet Pending Studies Studies pending at discharge: no Medical Emergencies . Who to Call and When: Medical Emergencies: If at any time you feel your situation is an emergency, please call 911 immediately. . Non-Emergent Contact Non-Emergency issues call your: Primary Care Provider, Specialist (ENT) Call Non-Emergent contact if: you have a fever, your pain is not controlled, your pain is worsening, your pain is unusual for you, your pain is concerning you, you have any medication questions . . "Provider Documentation" section prepared by Serjio Carson. . VTE Core Measure Inpt VTE Proph given/why not?: SCD's
[2016-12-21 12:54] VITALS: BP 121/62; PULSE 119; TEMP 36.7; O2SAT 99
--- NOTE | 2016-12-22 07:17 | Discharge Summary ---
Discharge Summary Date of Service Dec 21, 2016. Discharge Summary Admission Date: Dec 19, 2016 at 18:08 Discharge Date: Dec 21, 2016 Discharge Disposition: Home Principal Diagnosis: Infectious mononucleosis, Sepsis Procedures: ] CHEST ONE VIEW PORTABLE HISTORY: Atypical chest pain. Hemoptysis. COMPARISON: None. FINDINGS: The lungs are clear. Cardiac silhouette is normal in size. No pleural effusions. No pneumothorax. IMPRESSION: No acute process. (CHEST FOR PE) ANGIO WITH CT DOSE: 357.54 mGycm HISTORY: Chest pain hemoptysis TECHNIQUE: Multiaxial CT images of the chest were performed following the intravenous administration of contrast to evaluate the pulmonary arteries. Maximal intensity projection images were also obtained. A dose lowering technique was utilized adhering to the principles of ALARA. COMPARISON STUDY: None. FINDINGS: There is a normal caliber thoracic aorta with no evidence for dissection. There is no evidence for pulmonary embolus. No pleural effusions. No pneumothorax. The liver and spleen are unremarkable. No mediastinal or hilar lymphadenopathy. The central airways are patent. The lungs are clear. Several shotty axillary nodes bilaterally with the largest of the right measuring 1.2 cm on the left 1.3 cm. IMPRESSION: 1. Study is negative for pulmonary embolus. 2. Lungs are considered clear. 3. Mild bilateral axillary adenopathy possibly reactive ] CT NECK WITH INTRAVENOUS CONTRAST HISTORY: neck swelling/mediastinitis (half dose contrast since 2nd load) TECHNIQUE: Multiaxial CT images of the neck were performed following the use of intravenous contrast. COMPARISON STUDY: None. FINDINGS: Visualized brain parenchyma and orbits are unremarkable. Mild mucosal thickening and a trace fluid level within the right maxillary sinus. The mastoid air cells are clear. No fractures within the visualized osseous structures. Moderate enlargement and heterogeneous enhancement of the adenoid tonsils. There is also marked enlargement and heterogeneous enhancement of the of the bilateral palatine tonsils, right greater than left. No definite peritonsillar abscesses at this time. Focal hypodense/edematous region within the right palatine tonsil may represent a phlegmon. This is best seen on axial image 161. Small amount of mucoid material in the right side of the enlarged palatine tonsil. The palatine tonsils are abutting the midline resulting in mild to moderate airway compromise. The epiglottis and prevertebral soft tissues are normal in thickness. Mild upper right peritracheal lymphadenopathy. The lung apices are clear. The major vascular structures enhance normally. The parotid and submandibular glands are symmetric. There is bilateral cervical lymphadenopathy, right greater than left. Dominant right cervical lymph node measures 2.6 x 1.7 cm. Skin marker within the right lateral neck corresponds to a posterior cervical chain lymph node which measures 2.1 x 1.5 cm. The thyroid gland enhances normally. IMPRESSION: 1. Enlargement and heterogeneous enhancement within the adenoids and palatine tonsils. The palatine tonsils abut at the midline and result in mild to moderate airway compromise. Findings favor an infectious tonsillitis or mononucleosis. 2. Extensive bilateral cervical lymphadenopathy, right greater than left. 3. Focal hypodense area within the right palatine tonsil which does not clearly represent an abscess at this time. Therefore, this favors a phlegmon. Consider repeat CT scan if the patient's symptoms progress to exclude a developing peritonsillar abscess. Consultations: ENT Pulmonary Medication Reconciliation New Medications: Amoxicillin & Pot Clavulanate (Augmentin 875-125 mg) 1 Tab Tab 1 TAB PO BID for 10 Days, #20 TAB Prednisone Tab (Prednisone) 10 Mg Tab 10 MG PO DIRECTED for 4 Days, #6 TAB Take 2 pills 1x/day for 2 days Take 1 pill 1x/day for the following 2 days Continued Medications: Esomeprazole Magnesium (Nexium) 20 Mg Cap 1 CAP PO DAILY PRN for heartburn for 30 Days, CAP 0 Refills Discharge Exam Constitutional: + fever (resolved), + sweats, + fatigue, No chills ENT: + sore throat Respiratory: No cough, No sputum, No shortness of breath Cardiovascular: No chest pain, No palpitations Abdomen: No pain, No nausea, No vomiting, No diarrhea Male : No dysuria, No urinary frequency, No hematuria Neurologic: No weakness, No numbness/tingling Skin: No rash, No itch, No new/changing skin lesions GENERAL: alert, no distress EYE EXAM: normal conjunctiva, PERRL and EOM's grossly intact OROPHARYNX: erythema, Bilateral tonsillar enlargement , +exudates, lips, buccal mucosa, and tongue normal and mucous membranes are moist NECK: supple, no nuchal rigidity, no adenopathy, non-tender LUNGS: Clear to auscultation. Normal chest wall mechanics HEART: no murmurs, S1 normal and S2 normal ABDOMEN: abdomen soft, non-tender, normo-active bowel sounds, no masses, no rebound or guarding. SKIN: no rashes and no bruising UPPER EXTREMITIES: upper extremities are grossly normal. LOWER EXTREMITIES: No pitting edema. 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 He began having fevers to 103, malaise, sore throat, and severe fatigue about 7-10 days ago. He has been seen at [facility] twice since then. Eventually, he was positive for mono testing, but states he was negative for strep pharyngitis. He reports coughing up about a cupful of bright red blood this morning and was sent to the ER from the clinic. In the ER, his Monospot was again positive, his LFTs were elevated, his white blood cell count was elevated at 18 with a predominance of atypical lymphocytes. He had a CT angiogram of the chest which was negative for PE or pneumonia, but did show some mild axillary adenopathy bilaterally. He had some neck swelling and the ER doctor ordered a CT scan of the neck which showed enlargement of the adenoid and palatine tonsils, mild to moderate airway compromise, and phlegmon in the right tonsil with suspicion for early peritonsillar abscess. Although not in the report, the ER doctor mentioned that radiology thought there might be some stranding in the mediastinum consistent with mediastinitis. He had a low-grade fever in the ER, was tachycardic, and with a leukocytosis. A lactate was normal at 1.5 but was not drawn until after he received IV fluids. ENT saw the patient and performed a nasal laryngoscopy in the emergency room and did not think he had any airway compromise and there was no active bleeding. ER doctor performed a bedside echocardiogram which showed no pericardial effusion and grossly normal function. The patient will be admitted for hemoptysis, infectious mononucleosis with pharyngitis, and sepsis. Course: Sepsis in the setting Infectious mononucleosis, pharyngitis, Lymphadenopathy -Monospot positive, Rapid strep/Throat culture negative -Got Dexamethasone 10 mg IV q8 on admission -D/c'd Dexamethasone , converted to PO Prednisone 20 mg BID -Pain control for pharyngitis: PRN Toradol -Given IV abx (Zosyn) -Blood Cx's showed NGTD -witch to PO Augmentin pending cx's -During hospital stay clinically improved, vitals stabilized. CBC trended down, Hemoptysis - resolved - seen by Pulmonology - no bronchoscopy planned due to resolution of hemoptysis Elevated LFTS's -trending down -likely secondary to Mononucleosis -planned repeat labs after discharge in clinic appt LUQ pain -resolved --likely secondary to Mononucleosis Hx GERD - controlled -Continued Protonix DVT Prophylaxis -SCD's Discharged with follow up to primary care with repeat LFT's scheduled following d/c Total Time Spent: Less than 30 minutes This includes examination of the patient, discharge planning, medication reconciliation, and communication with other providers. Discharge Instructions Please refer to the electronic Patient Visit Report (Discharge Instructions) for additional information. Follow-Up Serjio Carson MD Additional Copies To Serjio Carson .MD
== END 2016-12-21 13:30 | disposition home or self-care (01) | DRG 872 ==
LOC: C.EDB 09:46 → C.2E 18:08 → EDBEDREQSVC 18:10 → ENRESERV 19:01
PROVIDERS: ADMIT Family Medicine; ATTEND Hospitalist
PROC: 0CJS8ZZ Inspection of Larynx, Via Natural or Artificial Opening Endoscopic (ICD-10-PCS; principal; 2016-12-19)
DX: A41.9 Sepsis, unspecified organism (principal); R04.2 Hemoptysis; J02.0 Streptococcal pharyngitis; B27.90 Infectious mononucleosis, unspecified without complication; K21.9 Gastro-esophageal reflux disease without esophagitis; R10.12 Left upper quadrant pain